=== PATIENT | male | born 2005 | race Hispanic/Latino ===

== ENCOUNTER 2025-03-13 17:25 | Emergency (ER) | payer MEDICAID ==
[~2025-03-13] VITALS: Ht 172.7 cm; Wt 47.6 kg
[2025-03-13 17:26] VITALS: BP_DIAS 66
[2025-03-13 17:50] LABS: RAPID GROUP A STREP negative (NEGATIVE)
[2025-03-13 17:58] LABS: COVID19 (SARS ANTIGEN RAPID) PRESUMPTIVE NEGATIVE (NEGATIVE); INFLUENZA TYPE A Negative For Type A (NEGATIVE); INFLUENZA TYPE B Negative For Type B (NEGATIVE)
--- NOTE | 2025-03-13 18:41 | HMCIMG ---
PORTABLE CHEST RADIOGRAPH INDICATION: Cough COMPARISON: None FINDINGS: Heart size is normal. The pulmonary vascularity and comfort appear normal. No abnormal pulmonary parenchymal opacity or consolidation identified. No significant pleural effusion noted. No pneumothorax detected. IMPRESSION: No radiographic evidence for any acute cardiopulmonary process.
--- NOTE | 2025-03-13 18:56 | ERN ---
General Chief Complaint: Congestion Stated Complaint: COUGH Time Seen by MD: 17:26 Time Seen by Midlevel: 17:26 Source: patient History of Present Illness Initial Comments 19-year-old male who presents with flu-like symptoms. Patient reports he has cough, congestion, subjective fever x3 weeks. Pain to the ribs when coughing initiated five days ago. Denies further associated symptoms. Patient has not been taking anything for the pain. History of asthma, for which he uses inhalers. Allergies: Coded Allergies: No Known Drug Allergies (Unverified Allergy, Unknown, 03/13/25) Home Meds Active Scripts Loratadine (Loratadine) 10 Mg Tablet, 1 TAB PO DAILY for allergy symptoms for 30 Days, #30 TAB 0 Refills Prov:DENISE ABREU 03/13/25 D-Methorphan Hb/P-Epd HCl/Bpm (Bromfed Dm Cough Syrup) 2 Mg-30 Mg-10 Mg/5 Ml Syrup, 10 ML PO QID for 5 Days, #200 ML Prov:DENISE ABREU 03/13/25 Past Medical History Past Medical History: Asthma Past Surgical History: Tonsillectomy ROS Dictation Constitutional: Positive for subjective fever Negative for chills, and weight loss Eyes: Negative for injury, pain,redness, and discharge ENT: Positive for congestion Negative for injury,pain or swelling Cardiovascular: Negative for chest pain, palpitations, and edema Respiratory: Positive for cough Negative for shortness of breath, and wheezing, Abdomen/GI: Negative for abdominal pain, nausea, vomiting, diarrhea, and constipation Back: Negative for injury and pain : Negative for painful urination, bleeding or discharge MS/Extremity: Negative for injury and deformity Skin: Negative for rash, and discoloration Neuro: Negative for headache, weakness, numbness, tingling, and seizure Psych: Negative for suicide ideation, homicidal ideation, and hallucinations Physical Exam Physical Exam Dictation General: awake, alert, no acute distress Head/Face: Normocephalic, atraumatic Eyes: PERRL, EOMI, normal conjunctiva ENT: oral cavity clear, oral mucosa moist Neck: Supple, normal range of motion Cardiovascular: RRR, normal S1/S2 Respiratory: CTAB, no respiratory distress, no rales or wheezes Abdomen: Soft, non-tender, non-distended Skin: Warm, dry, normal turgor, no rash MS/Extremity: Pulses equal, no cyanosis, neurovascular intact, FROM Neuro: COAx4, GCS 15, strength 5/5, CN 2-12 intact, normal cerebellar exam, normal gait, Psych: Normal behavior, mood, and affect normal Results Laboratory and Microbiology Lab and Micro Result Laboratory Tests Test 03/13/25 17:33 Influenza Type A Antigen Negative For Type A Influenza Type B Antigen Negative For Type B SARS-CoV-2 Antigen (Rapid) PRESUMPTIVE NEGATIVE Group A Streptococcus Rapid negative (NEGATIVE) Labs Reviewed?: Yes EKG/XRAY/US/CT/MRI X-RAY Comment REASON: Cough ORDERING PHYSICIAN: DENISE ABREU PROCEDURE: CXR1VW - CHEST 1VW PORTABLE CHEST RADIOGRAPH INDICATION: Cough COMPARISON: None FINDINGS: Heart size is normal. The pulmonary vascularity and comfort appear normal. No abnormal pulmonary parenchymal opacity or consolidation identified. No significant pleural effusion noted. No pneumothorax detected. IMPRESSION: No radiographic evidence for any acute cardiopulmonary process. DICTATED BY: SHAMEKA PACHECO MD DATE: 03/13/251838 MDM MDM: Differential diagnosis: Viral illness, strep, influenza, asthma exacerbation, allergies Rationale: 19-year-old male who presents with flu-like symptoms. Patient reports he has cough, congestion, subjective fever x3 weeks. Pain to the ribs when coughing initiated five days ago. Denies further associated symptoms. Patient has not been taking anything for the pain. History of asthma, for which he uses inhalers. Per physical examination patient is in no acute distress, nonlabored breathing, bilateral breath sounds auscultated without wheezing. SARs, influenza, strep negative. Chest x-ray obtained with no acute abnormalities. Patient was educated on findings and diagnosis. Advised to follow up with PCP. Return to the emergency department if any worsening symptoms. Patient verbalized understanding. Patient stable for discharge. There are no social concerns with this patient. I independently interpreted the test that were performed, results were reviewed by me and considered findings on radiology if ordered. Medical management and examination interpretation discussions were had by me with other qualified healthcare professionals as indicated for the patient's care. ED Course Orders Procedure Category Date Status Time Covid19 (Sars Antigen LAB 03/13/25 Complete Rapid) 17:31 Influenza Type A & B, LAB 03/13/25 Complete Rapid 17:31 Rapid (Group A Strep) LAB 03/13/25 Complete 17:31 Chest 1vw RAD 03/13/25 Resulted 17:31 Vital Signs Date Time Temp Pulse Resp B/P (MAP) Pulse Ox O2 Delivery O2 Flow Rate FiO2 03/13/25 19:04 98.1 70 16 100/ 98 Room Air* 0 21 03/13/25 17:26 97.2 74 16 116/66 97 Room Air DX & DISP Disposition: Discharge Departure Impression: Primary Impression: Cough Condition: Stable Scripts Loratadine (Loratadine) 10 Mg Tablet 1 TAB PO DAILY for allergy symptoms for 30 Days, #30 TAB 0 Refills Prov: DENISE ABREU 03/13/25 D-Methorphan Hb/P-Epd HCl/Bpm (Bromfed Dm Cough Syrup) 2 Mg-30 Mg-10 Mg/5 Ml Syrup 10 ML PO QID for 5 Days, #200 ML Prov: DENISE ABREU 03/13/25 Additional Instructions: Discharge home. Rest. Follow up with primary care in 24 hours. Return to the ER for any acute changes or worsening symptoms. If any medications were prescribed take as directed. Okay to continue home medications unless otherwise discussed during your visit in the emergency room today. Patient was also advised to follow-up with primary care physician in 1 to 2 days for continued monitoring. Referrals: SELF,REFERRAL (PCP) I performed the substantive portion of the visit. I have reviewed and personally made and approve the management plan that is documented in the notes by myself or the DESTINEE. I acknowledge full responsibility for the patient's management plan. DENISE ABREU March 13, 2025 18:56
[2025-03-13] MEDS ORDERED: LORA10TA7 PO (19:03)
[2025-03-13] MEDS ORDERED: BROM118S48 PO (19:03)
[2025-03-13 19:04] VITALS: BP_SYST 100; PULSE 70; RESP 16; TEMP 98; O2SAT 98
== END 2025-03-13 19:25 | disposition home or self-care (01) ==
LOC: EDH 17:25
DX: R05.9 Cough, unspecified (principal); J45.909 Unspecified asthma, uncomplicated; Z90.89 Acquired absence of other organs; Z79.899 Other long term (current) drug therapy; Z20.822 Contact with and (suspected) exposure to COVID-19
CPT/HCPCS: 71045; 87426; 87804; 87880; 99284